=== PATIENT | female | born 1985 | race Caucasian/White ===

== ENCOUNTER 2016-06-29 11:40 | Inpatient (IN) | payer OTHER ==
[~2016-06-29] VITALS: Ht 157.5 cm; Wt 98.0 kg
[2016-06-29] MEDS ORDERED: LACT. RINGERS/OXYTOCIN 20UNITS 1,000 ML IV SCH (12:03)
[2016-06-29] MEDS ORDERED: LACTATED RINGER'S 1,000 ML IV SCH (12:03)
[2016-06-29] MEDS ORDERED: CARBOPROST TROMETHAMINE 250 MCG/1ML VIAL IM PRN (12:15)
[2016-06-29] MEDS ORDERED: PROMETHAZINE HCL 25 MG/ML 1ML IV PRN (12:15)
[2016-06-29] MEDS ORDERED: NALBUPHINE HCL 10 MG/1ml INJECTION IV PRN (12:15)
[2016-06-29] MEDS ORDERED: LIDOCAINE 2%HCL (LOCAL ANESTH.) INJ 20ML MDV IJ ONE (12:15)
[2016-06-29] MEDS ORDERED: DERMOPLAST 60ML BOTTLE TOP PRN (12:15)
[2016-06-29] MEDS ORDERED: METHYLERGONOVINE MALEATE 0.2 MG/ML AMP IM PRN (12:15)
[2016-06-29] MEDS ORDERED: WITCH HAZEL-GLYCERIN PAD TOP PRN (12:15)
[2016-06-29] MEDS ORDERED: PHISODERM TOP SOLN 240ML BTL TOP PRN (12:15)
[2016-06-29 12:38] LABS: Basophils # (auto) 0 uL; Basophils % (auto) 0.3 % (0.0-2.0); DEFINITIVE VIEW TRANSMISSION; Eosinophils # (auto) 0.1 uL; Eosinophils % (auto) 1.5 % (0.0-7.0); Hemoglobin 8.7 g/dL (12.2-16.2); Lymphocytes # (auto) 1.3 uL; Lymphocytes % (auto) 13.5 % (10.0-50.0); Mean Corpuscular Hemoglobin 21.2 pg (28.0-32.0); Mean Corpuscular Hgb Conc. 31.1 g/dL (32.0-36.0); Mean Platelet Volume 8.6 fL (7.4-10.4); Monocytes # (auto) 0.6 uL; Monocytes % (auto) 6.5 % (0.0-12.0); Neutrophils # (auto) 7.5 uL; Neutrophils % (auto) 78.2 % (37.0-80.0); Platelet Count (auto) 295 10^3/uL (140-450); Red Cell Distribution Width 25.3 % (11.6-16.0); SUSPECT VIEW TRANSMISSION; White Blood Cell 9.6 10^3/uL (4.4-10.8)
[2016-06-29 12:45] LABS: INR 0.97 (0.9-1.15); Partial Thromboplastin Time 23.8 sec (22.64-33.71)
[2016-06-29 13:57] LABS: Urine Bilirubin Negative (Negative); Urine Color Yellow (Yellow); Urine Glucose Normal (Normal); Urine Mucus FEW (None Seen); Urine Nitrite Negative (Negative); Urine RBC 3 /hpf (0 - 4); Urine Squamous Epithelial Cell MOD /hpf (<5); Urine Urobilinogen Normal (Negative); Urine pH 5.5 (5.0-8.0)
[2016-06-29 14:10] LABS: Urine Blood 1+ /uL (Negative); Urine Ketone 1+ (Negative)
[2016-06-29 15:00] LABS: Anisocytosis Moderate
[2016-06-29 15:01] LABS: Microcytosis Moderate; Platelet Estimate Adequate
[2016-06-29] MEDS ORDERED: fentaNYL CITRATE 100 MCG/2 ML VL IV ONE (16:15)
[2016-06-29] MEDS ORDERED: fentaNYL W ROPIVACAINE 150 ML EPI SCH ×2 (16:15→18:15)
[2016-06-29] MEDS ORDERED: ePHEDrine SULFATE 50 MG/ML AMP IV ONE ×2 (16:15→18:15)
[2016-06-29] MEDS ORDERED: LIDOCAINE HCL 2 %PF INJ 10ML AMP IJ ONE (16:15)
[2016-06-29] MEDS ORDERED: NALOXONE HCL 0.4 MG/ML VIAL IV ONE ×2 (16:15→18:15)
[2016-06-29] MEDS ORDERED: SODIUM CHLORIDE 0.9% 500 ML IV PRN (18:10)
[2016-06-29] MEDS: IBUPROFEN 600 MG TAB PO PRN (19:29)
[2016-06-29] MEDS: DOCUSATE CALCIUM 240 MG CAP PO SCH (20:00)
[2016-06-29] MEDS: ACETAMINOPHEN 325 MG TAB PO PRN (21:32)
[2016-06-30] VITALS (17 sets, daily range): BP systolic 110–147; BP diastolic 59–87
[2016-06-30] MEDS: IBUPROFEN 600 MG TAB PO PRN ×2 (01:41→19:06)
[2016-06-30 07:30] LABS: Basophils # (auto) 0 uL; Basophils % (auto) 0.4 % (0.0-2.0); DEFINITIVE VIEW TRANSMISSION; Eosinophils # (auto) 0.1 uL; Eosinophils % (auto) 1.3 % (0.0-7.0); Hematocrit 22.8 % (36.0-46.0); Hemoglobin 7.3 g/dL (12.2-16.2); Lymphocytes % (auto) 17.6 % (10.0-50.0); Mean Corpuscular Hemoglobin 21.7 pg (28.0-32.0); Mean Corpuscular Hgb Conc. 31.8 g/dL (32.0-36.0); Mean Corpuscular Volume 68.2 fL (80.0-100.0); Monocytes # (auto) 0.8 uL; Monocytes % (auto) 7.1 % (0.0-12.0); Neutrophils # (auto) 8.3 uL; Neutrophils % (auto) 73.6 % (37.0-80.0); Platelet Count (auto) 257 10^3/uL (140-450); SUSPECT VIEW TRANSMISSION; White Blood Cell 11.3 10^3/uL (4.4-10.8)
[2016-06-30 07:32] LABS: Red Cell Distribution Width 26.1 % (11.6-16.0)
[2016-06-30] MEDS: FERROUS SULFATE 325 MG TAB PO SCH ×3 (08:24→17:56)
[2016-06-30] MEDS: ACETAMINOPHEN 325 MG TAB PO PRN (08:25)
[2016-06-30] MEDS: DOCUSATE CALCIUM 240 MG CAP PO SCH (10:00)
[2016-06-30 11:31] LABS: Anisocytosis Marked; Hypochromia Moderate; Microcytosis Marked; Ovalocytes FEW; Platelet Estimate Adequate
[2016-06-30 20:26] LABS: Basophils # (auto) 0 uL; Basophils % (auto) 0.3 % (0.0-2.0); DEFINITIVE VIEW TRANSMISSION; Eosinophils # (auto) 0.2 uL; Eosinophils % (auto) 1.6 % (0.0-7.0); Hematocrit 28.6 % (36.0-46.0); Hemoglobin 8.8 g/dL (12.2-16.2); Lymphocytes # (auto) 2.2 uL; Lymphocytes % (auto) 18.9 % (10.0-50.0); Mean Corpuscular Hemoglobin 22.3 pg (28.0-32.0); Mean Corpuscular Hgb Conc. 30.8 g/dL (32.0-36.0); Mean Corpuscular Volume 72.3 fL (80.0-100.0); Mean Platelet Volume 8.7 fL (7.4-10.4); Monocytes # (auto) 0.8 uL; Monocytes % (auto) 6.8 % (0.0-12.0); Neutrophils # (auto) 8.3 uL; Neutrophils % (auto) 72.4 % (37.0-80.0); Platelet Count (auto) 285 10^3/uL (140-450); SUSPECT VIEW TRANSMISSION; White Blood Cell 11.4 10^3/uL (4.4-10.8)
[2016-06-30 20:29] LABS: Red Cell Distribution Width 27.3 % (11.6-16.0)
[2016-06-30 21:04] LABS: Anisocytosis Slight; Hypochromia Slight; Platelet Estimate Adequate
[2016-07-01] MEDS: IBUPROFEN 600 MG TAB PO PRN (02:51)
[2016-07-01 03:00] VITALS: BP 117/66
[2016-07-01 08:00] VITALS: BP 130/72
== END 2016-07-01 11:20 | disposition home or self-care (01) | DRG 775 ==
LOC: LDRP 11:40
PROVIDERS: ADMIT Specialist; ATTEND Specialist
PROC: 10E0XZZ Delivery of Products of Conception, External Approach (ICD-10-PCS; principal; 2016-06-29)
PROC: 3E0S3CZ (ICD-10-PCS; 2016-06-29)
PROC: 00HU33Z Insertion of Infusion Device into Spinal Canal, Percutaneous Approach (ICD-10-PCS; 2016-06-29)
PROC: 10907ZC Drainage of Amniotic Fluid, Therapeutic from Products of Conception, Via Natural or Artificial Opening (ICD-10-PCS; 2016-06-29)
PROC: 3E0P7GC Introduction of Other Therapeutic Substance into Female Reproductive, Via Natural or Artificial Opening (ICD-10-PCS; 2016-06-29)
PROC: 30233S1 Transfusion of Nonautologous Globulin into Peripheral Vein, Percutaneous Approach (ICD-10-PCS; 2016-06-30)
PROC: 30233N1 Transfusion of Nonautologous Red Blood Cells into Peripheral Vein, Percutaneous Approach (ICD-10-PCS; 2016-06-30)
DX: O99.02 Anemia complicating childbirth (principal); D64.9 Anemia, unspecified; Z37.0 Single live birth; Z3A.39 39 weeks gestation of pregnancy; Z88.8 Allergy status to other drugs, medicaments and biological substances; O09.43 Supervision of pregnancy with grand multiparity, third trimester
CPT/HCPCS: 36415; 51702; 59025; 59409; 62282; 81001; 81002; 85025; 85610; 85730; 86850; 86900; 86901; 86920; 88307; 90384; 94760; 96361; 96365; 96366; J2590; J3010

== ENCOUNTER 2016-12-31 16:55 | Emergency (ER) | payer OTHER ==
[~2016-12-31] VITALS: Ht 157.5 cm; Wt 80.7 kg
[2016-12-31 17:06] VITALS: BP 115/89
== END 2016-12-31 18:17 | disposition home or self-care (01) ==
LOC: EDBD 16:55 → ER 16:59
DX: S80.02XA Contusion of left knee, initial encounter (principal); Z88.8 Allergy status to other drugs, medicaments and biological substances; Z90.49 Acquired absence of other specified parts of digestive tract; V49.69XA Unspecified car occupant injured in collision with other motor vehicles in traffic accident, initial encounter; Y93.89 Activity, other specified; Y99.8 Other external cause status; Y92.410 Unspecified street and highway as the place of occurrence of the external cause
CPT/HCPCS: 29505; 73562

== ENCOUNTER 2017-01-17 01:14 | Emergency (ER) | payer OTHER ==
[~2017-01-17] VITALS: Ht 157.5 cm; Wt 80.7 kg
[2017-01-17] MEDS ORDERED: SODIUM CHLORIDE 0.9% 1,000 ML IV ONE (02:15)
[2017-01-17 02:17] VITALS: BP 124/68
[2017-01-17 02:22] LABS: Basophils # (auto) 0.1 uL; CONDITION Y; DEFINITIVE SEE PRINTOUT; Eosinophils # (auto) 0.3 uL; Eosinophils % (auto) 3.2 % (0.0-7.0); Hematocrit 33.5 % (36.0-46.0); Hemoglobin 10.8 g/dL (12.2-16.2); Lymphocytes # (auto) 2.4 uL; Lymphocytes % (auto) 25.4 % (10.0-50.0); Mean Corpuscular Hemoglobin 23.4 pg (28.0-32.0); Mean Corpuscular Hgb Conc. 32.2 g/dL (32.0-36.0); Mean Corpuscular Volume 72.6 fL (80.0-100.0); Mean Platelet Volume 9.6 fL (7.4-10.4); Monocytes # (auto) 0.7 uL; Monocytes % (auto) 7.4 % (0.0-12.0); Platelet Count (auto) 316 10^3/uL (140-450); Red Cell Distribution Width 16.3 % (11.6-16.0); White Blood Cell 9.5 10^3/uL (4.4-10.8)
[2017-01-17 02:33] LABS: Urine Bilirubin Negative (Negative); Urine Blood 2+ /uL (Negative); Urine Color Yellow (Yellow); Urine Glucose Normal (Normal); Urine Ketone Negative (Negative); Urine Nitrite Negative (Negative); Urine RBC 11 /hpf (0 - 4); Urine Squamous Epithelial Cell FEW /hpf (<5); Urine Urobilinogen Normal (Negative); Urine pH 6.5 (5.0-8.0)
[2017-01-17 02:41] LABS: Albumin 3.6 g/dL (3.4-5.0); BUN/Creatinine Ratio 24.4; Calcium 9.1 mg/dL (8.5-10.1); Potassium 4.3 mmol/L (3.5-5.1)
[2017-01-17 02:43] LABS: Bilirubin, Total 0.2 mg/dL (0.2-1.0); Total Protein 7.6 g/dL (6.4-8.2)
[2017-01-17 02:46] LABS: INR 0.92 (0.9-1.15); Partial Thromboplastin Time 25.3 sec (22.64-33.71)
== END 2017-01-17 03:30 ==
LOC: EDBD 01:14 → ER 01:14
DX: F29 Unspecified psychosis not due to a substance or known physiological condition (principal); F15.10 Other stimulant abuse, uncomplicated; F32.9 Major depressive disorder, single episode, unspecified; Z90.49 Acquired absence of other specified parts of digestive tract; Z88.8 Allergy status to other drugs, medicaments and biological substances
CPT/HCPCS: 36415; 76801; 76817; 80053; 80307; 81001; 84702; 85025; 85610; 85730; 86901; 96360; 99285; J7030

== ENCOUNTER 2023-04-17 01:15 | Observation (INO) | payer MEDICAID, OTHER ==
[~2023-04-17] VITALS: Ht 160 cm; Wt 80.7 kg
[2023-04-17] MEDS ORDERED: ONDANSETRON HCL 4 MG/2 ML VIAL IV ONE (02:30)
[2023-04-17] MEDS ORDERED: LACTATED RINGER'S 1,000 ML IV ONE (02:30)
[2023-04-17 03:10] LABS: Basophils # (auto) 0.1 10 ^3/uL (0-0.2); Eosinophils # (auto) 0.2 10 ^3/uL (0-0.8); Eosinophils % (auto) 1.6 % (0.0-7.0); Neutrophils # (auto) 9.6 10 ^3/uL (1.6-8.6); Red Cell Distribution Width 15.3 % (11.8-14.3)
[2023-04-17 03:11] LABS: Basophils % (auto) 0.6 % (0.0-2.0); Hematocrit 30.6 % (36.0-46.0); Hemoglobin 10.2 g/dL (12.2-16.2); Lymphocytes % (auto) 15.5 % (10.0-50.0); Mean Corpuscular Hemoglobin 26.8 pg (28.0-32.0); Mean Corpuscular Hgb Conc. 33.2 g/dL (32.0-36.0); Mean Corpuscular Volume 80.8 fL (80.0-100.0); Monocytes # (auto) 1.1 10 ^3/uL (0-1.3); Monocytes % (auto) 8.4 % (0.0-12.0); Neutrophils % (auto) 73.9 % (37.0-80.0); Red Blood Cells 3.79 10^6/uL (4.0-5.20)
[2023-04-17 03:16] LABS: Alanine Aminotransferase 28 U/L (7-40); Albumin 3.6 g/dL (3.2-4.8); Alkaline Phosphatase 176 U/L (46-116); Anion Gap 10 (5-15); Aspartate Aminotransferase 17 U/L (13-40); BUN/Creatinine Ratio 18.5 (10.0-20.0); Bilirubin, Total 0.4 mg/dL (0.2-1.0); Blood Urea Nitrogen 10 mg/dL (9-23); Calcium 8.7 mg/dL (8.7-10.4); Carbon Dioxide 19 mmol/L (20-30); Chloride 105 mmol/L (98-107); Glucose 107 mg/dL (74-106); Potassium 3.8 mmol/L (3.5-5.1); Sodium 134 mmol/L (136-145); Total Protein 6.3 g/dL (5.7-8.2); Uric Acid 4.3 mg/dL (3.1-7.8)
[2023-04-17 03:37] LABS: INR 0.94 (0.9-1.15); Partial Thromboplastin Time 25.4 SEC (24.5-34.5); Prothrombin Time 9.9 sec (9.3-11.8)
[2023-04-17 03:39] LABS: Urine Bacteria FEW /hpf (None Seen); Urine Blood Negative /uL (Negative); Urine Clarity Clear (Clear); Urine Color Colorless (Yellow); Urine Protein, UAD Negative (Negative); Urine Specific Gravity 1.011 (1.001-1.035); Urine Urobilinogen Normal (Negative); Urine WBC 1 /hpf (0 - 5); Urine pH 5.5 (5.0-8.0)
[2023-04-17] MEDS ORDERED: PREN27TA7 OR (03:59)
[2023-04-17 04:05] LABS: Protein, Urine < 6.0 mg/dL (0.0-11.9)
[2023-04-17 04:08] LABS: Urine Protein/Creatinine Ratio 0.13
[2023-04-17 04:21] LABS: Amphetamine Screen, Urine Neg (NEGATIVE)
[2023-04-17 04:22] LABS: Barbiturate Scree,Urine Neg (NEGATIVE); Benzodiazephine Screen, Urine Neg (NEGATIVE); Cocaine Screen, Urine Neg (NEGATIVE); Opiate Scree,Urine Neg (NEGATIVE); Phencyclidine Screen, Urine Neg (NEGATIVE)
[2023-04-17 05:00] LABS: Cannabinoid Screen, Urine Neg (NEGATIVE)
== END 2023-04-17 04:28 | disposition home or self-care (01) ==
LOC: LDRP 01:15
PROVIDERS: ADMIT Obstetrics & Gynecology; ATTEND Obstetrics & Gynecology
DX: O62.9 Abnormality of forces of labor, unspecified (principal); O21.2 Late vomiting of pregnancy; Z3A.32 32 weeks gestation of pregnancy; Z79.899 Other long term (current) drug therapy
CPT/HCPCS: 36415; 59025; 80053; 80307; 81001; 81002; 82570; 84156; 84550; 85025; 85610; 85730; 94760; 96361; 96374; G0378; J2405; 96360

== ENCOUNTER 2023-05-22 12:52 | Observation (INO) | payer MEDICAID ==
[~2023-05-22 12:52] MED LIST: PREN27TA7 OR
== END 2023-05-22 15:12 | disposition home or self-care (01) ==
LOC: LDRP 12:52 → UNDOADMOB 12:52 → LDRP 13:16
PROVIDERS: ADMIT Obstetrics & Gynecology; ATTEND Obstetrics & Gynecology
DX: O24.419 Gestational diabetes mellitus in pregnancy, unspecified control (principal); O62.9 Abnormality of forces of labor, unspecified; O99.333 Smoking (tobacco) complicating pregnancy, third trimester; O26.893 Other specified pregnancy related conditions, third trimester; R10.30 Lower abdominal pain, unspecified; F17.210 Nicotine dependence, cigarettes, uncomplicated; Z3A.37 37 weeks gestation of pregnancy; Z91.02 Food additives allergy status
CPT/HCPCS: 59025; 76818; 81002; 82948; 82962; 94760; G0378

== ENCOUNTER 2023-05-29 15:08 | Observation (INO) | payer MEDICAID | END 2023-05-29 17:52 | disposition home or self-care (01) | LOC: UNDOADMOB 15:08 → LDRP 15:08 → UNDODISOB 17:52 | PROVIDERS: ADMIT Obstetrics & Gynecology; ATTEND Obstetrics & Gynecology | DX: O24.419 Gestational diabetes mellitus in pregnancy, unspecified control (principal); O99.333 Smoking (tobacco) complicating pregnancy, third trimester; F17.210 Nicotine dependence, cigarettes, uncomplicated; Z3A.38 38 weeks gestation of pregnancy | CPT/HCPCS: 59025; 76818; 81002; 82962; G0378 ==

== ENCOUNTER 2023-05-31 15:40 | Inpatient (IN) | payer MEDICAID ==
[~2023-05-31] VITALS: Ht 157.5 cm; Wt 110.2 kg
[2023-05-31] MEDS ORDERED: miSOPROStol 100 mcg TAB PR PRN (16:00)
[2023-05-31] MEDS ORDERED: PHISODERM TOP SOLN 240ML BTL TOP PRN (16:00)
[2023-05-31] MEDS ORDERED: miSOPROStol 50 MCG per PRE-CUT 1/2 TAB PO PRN (16:00)
[2023-05-31] MEDS ORDERED: DERMOPLAST 60ML BOTTLE TOP PRN (16:00)
[2023-05-31] MEDS ORDERED: LACT. RINGERS/OXYTOCIN 20UNITS 1,000 ML IV SCH (16:00)
[2023-05-31] MEDS ORDERED: LACTATED RINGER'S 1,000 ML IV SCH (16:00)
[2023-05-31] MEDS ORDERED: LABETALOL HCL 5 MG/ML 4ML SYRINGE IV PRN (16:00)
[2023-05-31] MEDS ORDERED: miSOPROStol 100 mcg TAB SL PRN (16:00)
[2023-05-31] MEDS ORDERED: BUTORPHANOL TARTRATE 2 MG/1 ML VIAL IV PRN ×2 (16:00)
[2023-05-31] MEDS ORDERED: PROMETHAZINE HCL 25 MG/ML 1ML IV PRN (16:00)
[2023-05-31] MEDS ORDERED: LIDOCAINE 2%HCL (LOCAL ANESTH.) INJ 20ML MDV IJ PRN (16:00)
[2023-05-31] MEDS ORDERED: METHYLERGONOVINE MALEATE 0.2 MG/ML AMP IM PRN (16:00)
[2023-05-31] MEDS ORDERED: LACT. RINGERS/OXYTOCIN 20UNITS 500 ML IV ONE ×2 (16:00→16:30)
[2023-05-31] MEDS ORDERED: CARBOPROST TROMETHAMINE 250 MCG/1ML VIAL IM ONE (16:00)
[2023-05-31] MEDS ORDERED: WITCH HAZEL-GLYCERIN PAD TOP PRN (16:00)
[2023-05-31 17:08] VITALS: BP 117/69; PULSE 109; RESP 18; TEMP 98.3; O2SAT 98
[2023-05-31 17:09] LABS: Basophils # (auto) 0.1 10 ^3/uL (0-0.2); Eosinophils # (auto) 0.2 10 ^3/uL (0-0.8); Hematocrit 30.1 % (36.0-46.0); Hemoglobin 9.4 g/dL (12.2-16.2); Mean Corpuscular Volume 73.9 fL (80.0-100.0); Neutrophils # (auto) 9.3 10 ^3/uL (1.6-8.6); Red Cell Distribution Width 17.3 % (11.8-14.3)
[2023-05-31 17:11] LABS: Basophils % (auto) 0.5 % (0.0-2.0); Eosinophils % (auto) 1.6 % (0.0-7.0); Lymphocytes # (auto) 1.6 10 ^3/uL (0.4-5.4); Lymphocytes % (auto) 13.5 % (10.0-50.0); Mean Corpuscular Hemoglobin 23.1 pg (28.0-32.0); Mean Corpuscular Hgb Conc. 31.2 g/dL (32.0-36.0); Monocytes % (auto) 8.1 % (0.0-12.0); Neutrophils % (auto) 76.3 % (37.0-80.0); Nucleated Red Blood Cells % 0.2 %; Red Blood Cells 4.07 10^6/uL (4.0-5.20); White Blood Cell 12.1 10^3/uL (4.4-10.8)
[2023-05-31 17:23] LABS: Alanine Aminotransferase 45 U/L (7-40); Albumin 3.7 g/dL (3.2-4.8); Alkaline Phosphatase 244 U/L (46-116); Anion Gap 9 (5-15); Aspartate Aminotransferase 34 U/L (13-40); Bilirubin, Total 0.5 mg/dL (0.2-1.0); Blood Urea Nitrogen 6 mg/dL (9-23); Calcium 8.9 mg/dL (8.5-10.1); Carbon Dioxide 17 mmol/L (20-30); Chloride 108 mmol/L (98-107); Glucose 82 mg/dL (74-106); Potassium 4.1 mmol/L (3.5-5.1); Sodium 134 mmol/L (136-145); Total Protein 6.4 g/dL (5.7-8.2)
[2023-05-31 17:25] LABS: INR 0.91 (0.9-1.15); Partial Thromboplastin Time < 20.0 SEC (24.5-34.5); Prothrombin Time 9.6 sec (9.3-11.8)
[2023-05-31 17:57] LABS: Urine Bacteria NONE SEEN /hpf (None Seen); Urine Blood Negative /uL (Negative); Urine Clarity Clear (Clear); Urine Color Colorless (Yellow); Urine Hyaline Cast FEW /lpf (0 - 2); Urine Protein, UAD Negative (Negative); Urine Specific Gravity 1.009 (1.001-1.035); Urine Urobilinogen Normal (Negative); Urine WBC 1 /hpf (0 - 5); Urine pH 5.5 (5.0-8.0)
[2023-05-31 18:03] LABS: Protein, Urine < 6.0 mg/dL (0.0-11.9)
[2023-05-31 18:06] LABS: Amphetamine Screen, Urine Neg (NEGATIVE); Barbiturate Scree,Urine Neg (NEGATIVE); Benzodiazephine Screen, Urine Neg (NEGATIVE); Cannabinoid Screen, Urine Neg (NEGATIVE); Cocaine Screen, Urine Neg (NEGATIVE); Creatinine, Urine 32.25 mg/dL (30.0-125.0); Opiate Scree,Urine Neg (NEGATIVE); Phencyclidine Screen, Urine Neg (NEGATIVE); Urine Protein/Creatinine Ratio 0.19
[2023-05-31] MEDS ORDERED: ACCU-CHEK COMFORT CURVE STRIP VI SCH (22:00)
[2023-05-31] MEDS ORDERED: DIPHENOXYLATE W/ATROPINE 2.5 MG TAB PO SCH (22:00)
[2023-06-02 07:06] LABS: RPR Non Reactive (Non Reactive)
== END 2023-05-31 21:44 | disposition home or self-care (01) | DRG 566 ==
LOC: LDRP 15:40
PROVIDERS: ADMIT Obstetrics & Gynecology; ATTEND Obstetrics & Gynecology
DX: O24.419 Gestational diabetes mellitus in pregnancy, unspecified control (principal); Z3A.39 39 weeks gestation of pregnancy
CPT/HCPCS: 36415; 59025; 76818; 80053; 80307; 81001; 82570; 82948; 84156; 85025; 85610; 85730; 86592; 86703; 86762; 86850; 86900; 86901; 87340; 94760; 96360; 96361; G0378

== ENCOUNTER 2023-06-01 19:18 | Inpatient (IN) | payer MEDICAID ==
[~2023-06-01] VITALS: Ht 157.5 cm; Wt 110.2 kg
[2023-06-01] MEDS ORDERED: PROMETHAZINE HCL 25 MG/ML 1ML IV PRN (20:00)
[2023-06-01] MEDS ORDERED: PHISODERM TOP SOLN 240ML BTL TOP PRN (20:00)
[2023-06-01] MEDS ORDERED: LIDOCAINE 2%HCL (LOCAL ANESTH.) INJ 20ML MDV IJ PRN (20:00)
[2023-06-01] MEDS ORDERED: DERMOPLAST 60ML BOTTLE TOP PRN (20:00)
[2023-06-01] MEDS ORDERED: WITCH HAZEL-GLYCERIN PAD TOP PRN (20:00)
[2023-06-01 21:57] LABS: Urine Bacteria NONE SEEN /hpf (None Seen); Urine Blood Negative /uL (Negative); Urine Clarity Clear (Clear); Urine Color Colorless (Yellow); Urine Mucus FEW (None Seen); Urine Protein, UAD Negative (Negative); Urine Specific Gravity 1.015 (1.001-1.035); Urine Urobilinogen Normal (Negative); Urine WBC 1 /hpf (0 - 5); Urine pH 5.5 (5.0-8.0)
[2023-06-01 22:03] LABS: Amphetamine Screen, Urine Neg (NEGATIVE); Barbiturate Scree,Urine Neg (NEGATIVE); Benzodiazephine Screen, Urine Neg (NEGATIVE); Cannabinoid Screen, Urine Neg (NEGATIVE); Cocaine Screen, Urine Neg (NEGATIVE); Opiate Scree,Urine Neg (NEGATIVE); Phencyclidine Screen, Urine Neg (NEGATIVE)
[2023-06-01] MEDS: LACTATED RINGER'S 1,000 ML IV SCH (22:44)
[2023-06-01] MEDS: SERTRALINE HCL 50 MG TAB PO SCH (23:02)
[2023-06-02] MEDS ORDERED: miSOPROStol 100 mcg TAB ONE ×2 (01:02→04:57)
[2023-06-02] MEDS: miSOPROStol 50 MCG per PRE-CUT 1/2 TAB PO PRN ×2 (01:06→05:11)
[2023-06-02] MEDS ORDERED: diphenhdrAMINE HCL 50 MG/1 ML VL IV ONE (02:15)
[2023-06-02] MEDS ORDERED: LACT. RINGERS/OXYTOCIN 20UNITS 500 ML IV ONE ×2 (02:30→03:00)
[2023-06-02] MEDS: LACTATED RINGER'S 1,000 ML IV SCH ×3 (03:09→19:16)
[2023-06-02] MEDS ORDERED: PROMETHAZINE HCL 25 MG/ML 1ML IM PRN (05:00)
[2023-06-02] MEDS ORDERED: NALOXONE HCL 0.4 MG/ML VIAL IV ONE (07:15)
[2023-06-02] MEDS ORDERED: ePHEDrine SULFATE 50 MG/ML AMP IV ONE (07:15)
[2023-06-02] MEDS ORDERED: LACTATED RINGER'S 1,000 ML IV ONE (07:15)
[2023-06-02] MEDS ORDERED: ROPIVACAINE HCL 100 ML ONE ×3 (07:25→18:12)
[2023-06-02] MEDS ORDERED: TRANEXAMIC ACID 1,000 MG in SODIUM CHL 0.9% 100 ML IV ONE (07:45)
[2023-06-02] MEDS ORDERED: METHYLERGONOVINE MALEATE 0.2 MG/ML AMP IM PRN (07:45)
[2023-06-02] MEDS ORDERED: miSOPROStol 100 mcg TAB PR PRN (07:45)
[2023-06-02] MEDS ORDERED: CARBOPROST TROMETHAMINE 250 MCG/1ML VIAL IM PRN ×2 (07:45→18:30)
[2023-06-02] MEDS ORDERED: miSOPROStol 100 mcg TAB SL PRN (07:45)
[2023-06-02] MEDS ORDERED: LACT. RINGERS/OXYTOCIN 20UNITS 1,000 ML IV SCH (10:00)
[2023-06-02] MEDS ORDERED: DIPHENOXYLATE W/ATROPINE 2.5 MG TAB PO PRN (10:00)
[2023-06-02] MEDS ORDERED: TERBUTALINE SULFATE 1 MG/ML 1ML VIAL SC PRN (10:00)
[2023-06-02] MEDS ORDERED: DIPHENOXYLATE W/ATROPINE 2.5 MG TAB PO SCH (10:00)
[2023-06-02] MEDS: SERTRALINE HCL 50 MG TAB PO SCH ×2 (10:15→22:40)
[2023-06-02] MEDS ORDERED: SERTRALINE HCL 50 MG TAB PO SCH (10:30)
[2023-06-02] MEDS ORDERED: ONDANSETRON HCL 4 MG/2 ML VIAL IV PRN (10:45)
[2023-06-02 12:06] LABS: Basophils # (auto) 0.1 10 ^3/uL (0-0.2); Basophils % (auto) 0.4 % (0.0-2.0); Lymphocytes % (auto) 12.9 % (10.0-50.0); Red Cell Distribution Width 17.3 % (11.8-14.3)
[2023-06-02 12:09] LABS: Eosinophils # (auto) 0.2 10 ^3/uL (0-0.8); Eosinophils % (auto) 1.2 % (0.0-7.0); Hematocrit 27.1 % (36.0-46.0); Hemoglobin 8.6 g/dL (12.2-16.2); Lymphocytes # (auto) 1.7 10 ^3/uL (0.4-5.4); Mean Corpuscular Hemoglobin 23.2 pg (28.0-32.0); Mean Corpuscular Hgb Conc. 31.8 g/dL (32.0-36.0); Mean Corpuscular Volume 73.1 fL (80.0-100.0); Monocytes # (auto) 0.9 10 ^3/uL (0-1.3); Monocytes % (auto) 6.6 % (0.0-12.0); Neutrophils # (auto) 10.6 10 ^3/uL (1.6-8.6); Neutrophils % (auto) 78.9 % (37.0-80.0); Nucleated Red Blood Cells % 0.2 %; Red Blood Cells 3.71 10^6/uL (4.0-5.20); White Blood Cell 13.4 10^3/uL (4.4-10.8)
[2023-06-02 12:23] LABS: Alanine Aminotransferase 32 U/L (7-40); Albumin 3.3 g/dL (3.2-4.8); Alkaline Phosphatase 214 U/L (46-116); Anion Gap 10 (5-15); Aspartate Aminotransferase 26 U/L (13-40); BUN/Creatinine Ratio 12.7 (10.0-20.0); Blood Urea Nitrogen 7 mg/dL (9-23); Calcium 8.5 mg/dL (8.5-10.1); Carbon Dioxide 20 mmol/L (20-30); Chloride 107 mmol/L (98-107); Glucose 82 mg/dL (74-106); Potassium 3.6 mmol/L (3.5-5.1); Sodium 137 mmol/L (136-145)
[2023-06-02 12:24] LABS: Bilirubin, Total 0.6 mg/dL (0.2-1.0); Total Protein 5.7 g/dL (5.7-8.2)
[2023-06-02 12:51] LABS: INR 0.93 (0.9-1.15); Partial Thromboplastin Time 25.1 SEC (24.5-34.5); Prothrombin Time 9.8 sec (9.3-11.8)
[2023-06-02 13:27] LABS: Uric Acid 4.6 mg/dL (3.1-7.8)
[2023-06-02 23:00] VITALS: BP 117/69; PULSE 90; RESP 16; TEMP 99.6; O2SAT 98
[2023-06-02] MEDS ORDERED: ACETAMINOPHEN 325 MG TAB PO PRN (23:30)
[2023-06-03] MEDS ORDERED: RHO (D) IMMUNE GLOBULIN 300 MCG INJ IM ONE (00:15)
[2023-06-03 05:45] LABS: Eosinophils # (auto) 0.1 10 ^3/uL (0-0.8); Hemoglobin 7.5 g/dL (12.2-16.2)
[2023-06-03 05:47] LABS: Basophils # (auto) 0.1 10 ^3/uL (0-0.2); Basophils % (auto) 0.3 % (0.0-2.0); Eosinophils % (auto) 0.4 % (0.0-7.0); Hematocrit 23.8 % (36.0-46.0); Lymphocytes # (auto) 1.6 10 ^3/uL (0.4-5.4); Lymphocytes % (auto) 9.9 % (10.0-50.0); Mean Corpuscular Hemoglobin 23.5 pg (28.0-32.0); Mean Corpuscular Hgb Conc. 31.4 g/dL (32.0-36.0); Mean Corpuscular Volume 74.9 fL (80.0-100.0); Monocytes # (auto) 1.2 10 ^3/uL (0-1.3); Monocytes % (auto) 7.4 % (0.0-12.0); Neutrophils # (auto) 13.5 10 ^3/uL (1.6-8.6); Red Blood Cells 3.18 10^6/uL (4.0-5.20); Red Cell Distribution Width 17.6 % (11.8-14.3); White Blood Cell 16.4 10^3/uL (4.4-10.8)
[2023-06-03 07:00] VITALS: BP 117/70; PULSE 94; RESP 18; TEMP 97.4; O2SAT 98
[2023-06-03] MEDS: IBUPROFEN 600 MG TAB PO PRN ×2 (07:24→17:03)
[2023-06-03 08:06] LABS: RPR Non Reactive (Non Reactive)
[2023-06-03 11:00] VITALS: BP 108/58; PULSE 103; RESP 18; TEMP 98.3; O2SAT 98
[2023-06-03] MEDS: SERTRALINE HCL 50 MG TAB PO SCH (11:44)
[2023-06-03] MEDS: FERROUS SULFATE 325mg EC TAB PO SCH ×2 (11:44→17:04)
[2023-06-03 15:00] VITALS: BP 123/61; PULSE 101; RESP 18; TEMP 97.5; O2SAT 99
[2023-06-03 19:00] VITALS: BP 145/79; PULSE 99; RESP 18; TEMP 97.9; O2SAT 100
[2023-06-03] MEDS ORDERED: TETANUS-DIPTH-ACEL PERTUSSIS 0.5ML SYR Tdap IM ONE (19:00)
[2023-06-03 20:07] VITALS: BP 145/79; PULSE 99; RESP 18; TEMP 97.9; O2SAT 100
[2023-06-03] MEDS ORDERED: DOCUSATE SOD 100 MG CAP PO SCH (22:00)
[2023-06-05 19:06] LABS: Treponema pallidum Ab (FTA-Ab) Non Reactive (Non Reactive)
== END 2023-06-03 20:07 | disposition home or self-care (01) | DRG 560 ==
LOC: LDRP 19:18
PROVIDERS: ADMIT Obstetrics & Gynecology; ATTEND Obstetrics & Gynecology
PROC: 10E0XZZ Delivery of Products of Conception, External Approach (ICD-10-PCS; principal; 2023-06-02)
PROC: 10907ZC Drainage of Amniotic Fluid, Therapeutic from Products of Conception, Via Natural or Artificial Opening (ICD-10-PCS; 2023-06-02)
PROC: 3E0R3BZ Introduction of Anesthetic Agent into Spinal Canal, Percutaneous Approach (ICD-10-PCS; 2023-06-02)
PROC: 00HU33Z Insertion of Infusion Device into Spinal Canal, Percutaneous Approach (ICD-10-PCS; 2023-06-02)
PROC: 3E0234Z Introduction of Serum, Toxoid and Vaccine into Muscle, Percutaneous Approach (ICD-10-PCS; 2023-06-03)
DX: O24.429 Gestational diabetes mellitus in childbirth, unspecified control (principal); Z37.0 Single live birth; O16.4 Unspecified maternal hypertension, complicating childbirth; F44.81 Dissociative identity disorder; O99.02 Anemia complicating childbirth; O99.344 Other mental disorders complicating childbirth; O26.893 Other specified pregnancy related conditions, third trimester; Z23 Encounter for immunization; Z3A.39 39 weeks gestation of pregnancy; Z67.41 Type O blood, Rh negative
CPT/HCPCS: 36415; 59025; 59409; 62282; 76815; 80053; 80307; 81001; 81002; 82948; 82962; 84550; 85025; 85610; 85730; 86592; 86850; 86900; 86901; 86922; 90384; 90715; 94760; 94762; 96360; 96361; 96365; 96366; 96372; G0378; J2405; J2590